=== PATIENT | female | born 1955 | race Caucasian/White ===

== ENCOUNTER 2016-11-19 11:00 | Inpatient (IN) | payer BC ==
[~2016-11-19] VITALS: Ht 177.8 cm; Wt 110.2 kg
--- NOTE | ~2016-11-19 | DS ---
PAT[facility]'S NAME: [facility] AGE: 61 Y [address] ROOM: [address] [place], [place] [address] LOCATION: [facility] ADMIT DATE: 11/27/2016 Discharge Summary DISCHARGE DATE: 11/29/2016 FAMILY PHYSICIAN: Doris Norman ATTENDING PHYSICIAN: Ayan Ochoa PRIMARY DIAGNOSIS: Degenerative joint disease of the left knee. SECONDARY DIAGNOSES: 1. Hypertension. 2. Anxiety disorder. 3. Recurrent urinary tract infections. PROCEDURE PERFORMED: Left total knee arthroplasty with computer navigation. HISTORY: The patient is a 61-year-old female, who presents with advanced left knee degenerative joint disease and associated severely compromised activities of daily living. The patient has decided to proceed with total knee arthroplasty after having been thoroughly counseled regarding the risks, benefits, limitations and alternatives. Please refer to the outpatient clinic notes and admission history and physical for this patient. HOSPITAL COURSE: The patient underwent a left total knee arthroplasty on 11/27/2016 without complications. Spinal anesthesia plus adductor canal block plus periarticular local anesthesia was utilized. The patient received 24 hours of perioperative prophylactic antibiotics and remained hemodynamically stable, neurovascularly intact throughout the entire hospital course. The postoperative prophylactic deep venous thrombosis prophylaxis consisted of Xarelto 10 mg, early mobilization and pneumatic compression devices. Daily physical therapy for gait training, transfer training range of motion and quadriceps isometric exercises were received. The patient progressed well in physical therapy. On the date of discharge, 11/29/2016, the incision at the knee was healing well and showed no signs of infection. DISPOSITION: Home. DISCHARGE ACTIVITY: The patient is to bear weight as tolerated with range of motion and quadriceps isometric exercises as instructed. The operative extremity is to be elevated at least 90% of the day. There is to be sterile 4x4 gauze dressings to the incision daily. Dr. Ochoa is to be notified immediately if there is any increased pain, fevers, chills erythema or drainage. DISCHARGE MEDICATIONS: 1. Xarelto 10 mg, take 1 tablet p.o. daily for DVT prevention. [facility]'S [facility]: [facility] AGE: 61 Y [address] [place]: [facility] [place] [place], [place] [address] LOCATION: [facility] ADMIT DATE: 11/27/2016 Discharge Summary DISCHARGE DATE: 11/29/2016 FAMILY PHYSICIAN: Doris Norman ATTENDING PHYSICIAN: Ayan Ochoa 2. Dilaudid 2 mg, take 1 to 2 tablets p.o. every 4 hours as needed for pain. 3. Celebrex 200 mg, take 1 tablet p.o. b.i.d. as needed. FOLLOWUP: Followup appointment is to be with Dr. Ochoa on Sunday December 04, 2016, for initial postoperative evaluation and x-rays at that time. MIS ARORA FOR AYAN OCHOA MD TLB/modl /[id number] d: 12/04/16 0306 t: 12/04/16 1110, DISCHARGE SUMMARY
--- NOTE | ~2016-11-19 | OR ---
PATIENT'S NAME: RAMON ARRIETA [facility] AGE: 61 Y [address] ROOM: [place] [address] LOCATION: [facility] ADMIT DATE: 11/27/2016 OR/Procedure Report DISCHARGE DATE: FAMILY PHYSICIAN: Doris Norman ATTENDING PHYSICIAN: AYAN LOUIS SURGEON: Ayan Louis MD ELECTRICAL ASSISTANT: Marty Rodríguez PA-C and Nilesh Sanchez CST/TOWER OPERATOR. DATE OF PROCEDURE: 11/27/2016 PRE-OP DIAGNOSIS: Degenerative joint disease left knee. POST-OP DIAGNOSIS: Degenerative joint disease left knee. OPERATION: Left total knee arthroplasty with computer navigation. ANESTHESIA: Spinal anesthesia, plus adductor canal block, plus periarticular local anesthesia (ropivacaine with epinephrine and Toradol). ESTIMATED BLOOD LOSS: Less than 10 mL. DRAIN: None. SPECIMEN: None. COMPLICATIONS: None. IMPLANT SYSTEM: Danika Triathlon. Size 5 left posterior stabilized femoral component. Size 4 [place] Modular tibial baseplate. A 16 mm posterior stabilized size 4 X3 tibial polyethylene insert. A 32 mm oval X3 patella component (triple pegged). INDICATIONS FOR SURGERY: Ramon Arrieta is a 61-year-old female who presents with advanced left knee degenerative joint disease and associated severely compromised activities of daily living. The patient has decided to proceed with knee replacement after having been thoroughly counseled regarding the associated risks, benefits, and limitations. We have specifically reviewed the risks and implications of infection, deep venous thrombosis, pulmonary embolism, mortality, neurovascular complications, blood transfusion (and associated potential for disease transmission or transfusion reaction), stiffness, instability, mechanical deterioration of the components (due to wear and or loosening), and the potential need for revision. We have also emphasized the importance of active involvement and compliance with post- operative physical therapy as a means of optimizing range of motion and PATIENT'S NAME: RAMON ARRIETA [facility] AGE: 61 Y [address] ROOM: [place] [address] LOCATION: [facility] ADMIT DATE: 11/27/2016 OR/Procedure Report DISCHARGE DATE: FAMILY PHYSICIAN: Doris Norman ATTENDING PHYSICIAN: AYAN LOUIS functional recovery. Informed consent has been granted. DESCRIPTION OF PROCEDURE: The patient was positioned supine after administration of anesthesia and prophylactic antibiotics. A well-padded pneumatic tourniquet was placed around the left proximal thigh, and the left lower extremity was prepped and draped with vigilant sterile technique. The patient's name as well as the intended operative side and procedure were confirmed with a verbal time-out involving myself, the circulating nurse, the scrub nurse, and the anesthesiologist. Examination under anesthesia demonstrated no active skin lesions or masses. There was a moderate effusion. There was no erythema. There was no abnormal warmth. Range of motion under anesthesia was from full extension to 130 degrees of flexion. There was no ligamentous insufficiency. The left lower extremity was elevated and exsanguinated with an Esmarch wrap, and the pneumatic tourniquet was inflated to 300 mmHg. The knee was approached through a longitudinal midline incision. A medial parapatellar arthrotomy was performed and the patella was everted. Examination of the joint space demonstrated a moderate amount of benign-appearing translucent synovial fluid. There were no loose bodies. There was no synovitis. There was a moderate-sized osteophyte at the intercondylar notch. Cruciate ligaments were intact. There was a large osteophyte at the inferior margin of the patella. There was a large osteophyte at the superior femoral trochlea. There were large osteophytes at the medial and lateral margins of these femoral trochlea as well as the medial femoral condyle and medial tibial plateau. There were intermixed grade 3 and grade 4 degenerative changes involving a 3 cm diameter region at the central aspect of the femoral trochlea. There was full-thickness loss of articular cartilage involving 90% of the medial femoral condyle and 60% of the medial tibial plateau. There were large osteophytes at the anterior and posterior margins of the medial tibial plateau. There was a 6 mm diameter region of grade 3 chondromalacia at the central aspect of the lateral femoral condyle. There was full-thickness fissuring and mild grade 3 chondromalacia at the medial aspect of the lateral tibial plateau. Remnants of the menisci and cruciate ligaments were excised. The [employer] navigation femoral tracker was pinned in place at the distal aspect of the femoral trochlea. Absence of motion between the femur and the tracking device was confirmed manually and visually. Femoral osseous landmarks were obtained in order to calibrate the computer navigation system. Landmarks included the center of rotation of the ipsilateral hip, the center-point of the distal femur, the femoral AP axis, 57 points on the medial femoral condyle articular surface, and 57 points on the lateral femoral condyle articular PATIENT'S NAME: RAMON ARRIETA [facility] AGE: 61 Y [address] ROOM: [address] [address] LOCATION: [facility] ADMIT DATE: 11/27/2016 OR/Procedure Report DISCHARGE DATE: FAMILY PHYSICIAN: Doris Norman ATTENDING PHYSICIAN: AYAN LOUIS. The [employer] computer navigation system was subsequently utilized to position the distal femoral resection block such that the distal femoral resection was performed perfectly perpendicular to the femoral mechanical axis. The distal femoral resection was performed with a Sisasa oscillating saw. The [employer] computer navigation tibial tracker was pinned in place at the anterior aspect of the tibial plateau. Absence of motion between the tibia and the tracking device was confirmed manually and visually. Tibial osseous landmarks were obtained in order to calibrate the computer navigation system. Landmarks included the center-point of the tibial plateau, the AP tibial axis, 57 points on the medial tibial plateau articular surface, 57 points on the lateral tibial plateau articular surface, the medial malleolus, and the lateral malleolus. The [employer] computer navigation system was subsequently utilized to position the proximal tibial resection block such that the proximal tibial resection was performed perfectly perpendicular to the tibial mechanical axis. The proximal tibial resection was performed with a [employer] Precision oscillating saw. Perpendicularity of the tibial resection with respect to the tibial shaft axis was reconfirmed by inserting a spacer- block attached to an extramedullary guide dimitrios. External rotation of the anterior and posterior femoral resections was set parallel to the epicondylar axis and carefully adjusted in order to create a rectangular flexion gap. The box resection was performed with a reciprocating saw. Anterior and posterior chamfer resections were performed with the oscillating saw. Posterior condyle osteophytes were excised with an osteotome. All other osteophytes were excised with a rongeur. Resection of all remnants of the menisci was reconfirmed. Flexion and extension gaps were confirmed to be symmetric and well balanced with a spacer-block technique. The patella resection was performed with an oscillating saw such that the composite thickness of the reconstructed patella was equivalent to the thickness of the [place] patella. Patella tracking was confirmed to be optimal. Patellar tracking was optimal, and there was no need for a lateral retinacular release. All trial components were removed and all prepared osseous surfaces were thoroughly irrigated with pulsatile saline lavage and dried prior to cementing all three components in a single stage using [place] Simplex cement containing pre-mixed tobramycin. All extruded excess cement was removed. The entire joint space was thoroughly inspected and thoroughly irrigated with bacteriostatic pulsatile saline lavage to assure that there was no residual debris of any sort. Final range of motion was from full extension (with no passive hyperextension) PATIENT'S NAME: RAMON ARRIETA [facility] AGE: 61 Y [address] ROOM: [address] [address] LOCATION: [facility] ADMIT DATE: 11/27/2016 OR/Procedure Report DISCHARGE DATE: FAMILY PHYSICIAN: Doris Norman ATTENDING PHYSICIAN: AYAN LOUIS to 130 degrees of flexion. Patella tracking was reconfirmed to be optimal. There was excellent anteroposterior stability at 90 degrees of flexion. There was 0 mm of medial lift-off to valgus stress in full extension. There was 1 mm of lateral lift-off to varus stress in full extension. The arthrotomy was closed with multiple simple and [id number] interrupted #1 Vicryl. Subcutaneous tissues were thoroughly re-irrigated with bacteriostatic pulsatile saline lavage. Subcutaneous tissues were re- approximated with simple buried interrupted #0 Vicryl sutures. The skin was closed with simple buried interrupted 2-0 Vicryl sutures followed by surgical clara. The dressing consisted of Xeroform gauze, 4x4 gauze, ABD pads and two 6-inch Yonatan Wraps. There were no intra-operative complications. It should be noted that the physician's cardiology physician assistant played an active, integral role throughout this entire operation. By providing expert retraction, they greatly facilitated and expedited safe and effective exposure of the distal femur, proximal tibia and patella for preparation and implantation of the components. They were also actively involved in the patient's positioning, prepping and draping, as well as wound closure. MD COLTON HOOKER/modl /[id number] d: 11/28/16929 t: 11/29/162035, OPERATIVE SUMMARY
--- NOTE | ~2016-11-19 | CON ---
PATIENT'S NAME: [facility] AGE: 61 Y [address] ROOM: [place] [address] LOCATION: [facility] ADMIT DATE: 11/27/2016 Consultation DISCHARGE DATE: FAMILY PHYSICIAN: Doris Norman ATTENDING PHYSICIAN: AYAN LOUIS DATE OF CONSULTATION: 11/27/2016 REFERRING PHYSICIAN: SANDEE BURNETT MD CONSULTING PHYSICIAN: Dr. Burnett. REASON FOR CONSULTATION: Medical management, postop. HISTORY OF PRESENT ILLNESS: The patient is a 61-year-old female with a past medical history further detailed below. She is postop day 0 for left total knee arthroplasty. At this point, the patient is resting comfortably in Medical/Surgical Unit and denies any complaints. REVIEW OF SYSTEMS: All systems have been reviewed and are negative aside from pertinent positives mentioned above. PAST MEDICAL HISTORY: As reported by the patient is that of: 1. Essential hypertension, on medications. 2. Depression/anxiety on Zoloft. 3. Questionable PUD versus GERD on acid blockers. PAST SURGICAL HISTORY: Significant for prior right hip arthroplasty. SOCIAL HISTORY: The patient denies any history of toxic habits. FAMILY HISTORY: Reviewed and is noncontributory due to known underlying etiology for her presentation to the hospital. CURRENT MEDICATIONS: 1. Amlodipine. 2. Calcium carbonate. 3. Vitamin D. PATIENT'S NAME: [facility] AGE: 61 Y [address] ROOM: [place] [address] LOCATION: [facility] ADMIT DATE: 11/27/2016 Consultation DISCHARGE DATE: FAMILY PHYSICIAN: Doris Norman ATTENDING PHYSICIAN: AYAN LOUIS 4. Flonase. 5. Hydrochlorothiazide. 6. Ibuprofen. 7. Lisinopril. 8. Multivitamin. 9. Naproxen. 10. Macrobid. 11. [place]-3 fatty acids. 12. Omeprazole. 13. Zoloft. PHYSICAL EXAMINATION: VITAL SIGNS: Temperature 98.2, pulse 80, respirations 16, blood pressure 143/66, and saturating 100% on 2 L nasal cannula. GENERAL APPEARANCE: Well-developed, well-nourished, middle-aged female, in no acute distress. NEUROLOGICAL: Exam is nonfocal. EYES: Exam shows pupils are equal and reactive to light. LYMPHATICS: Exam shows no cervical lymphadenopathy. ENDOCRINE: Exam shows no thyromegaly. LUNGS: Clear to auscultation. HEART: Rate is regular. GI: Abdomen is soft, nontender, nondistended. : No costovertebral angle tenderness. VASCULAR: A 2+ pedal pulses. MUSCULOSKELETAL: Exam is deferred. SKIN: Warm and dry. PSYCHIATRIC: Appropriate mood, cognition, and affect. LABORATORY DATA: No lab studies are available at this point. IMPRESSION/RECOMMENDATIONS: A 61-year-old female postop day 0 for left total knee arthroplasty. Problems to be addressed are: 1. Essential hypertension. Her antihypertensive regimen has been continued. 2. Anxiety. Her Zoloft has been continued. 3. Questionable peptic ulcer disease versus gastroesophageal reflux disease. Proton pump inhibitor has been continued. 4. Pain regimen and gastrointestinal regimen have been ordered by the Primary Service. 5. We will help manage the patient's medical problems till discharge. Thank you for allowing me to participate in the care of this patient. Time dedicated to this patient encounter is 16 minutes. PATIENT'S NAME: [facility]ON [facility] AGE: 61 Y [address] ROOM: [address] [address] LOCATION: [facility] ADMIT DATE: 11/27/2016 Consultation DISCHARGE DATE: FAMILY PHYSICIAN: Doris Norman ATTENDING PHYSICIAN: AYAN LOUIS MD TEVIN ONOFRE/chinedu /[id number] d: 11/28/16 0158 t: 12/11/16 0003, CONSULTATION REPORT
[~2016-11-19 11:00] MED LIST: ADVIL200 MG PO; ALEVE220 MG PO; CALCIUM 600 +1 EAC6 PO; CELEBREX200 MG PO; COLACE100 MG PO; DILAUDID 2MG(HYD2 MG PO; FISH OIL 1,2001 EAC1 PO; FLONASE 50 MCG/16 GM NOSE; HYDROCHLOROTH12.5 M1 PO; MACROBID100 MG PO; MIRALAX17 GM PO; NORVASC10 MG PO; PRILOSEC20 MG PO; THERA-VITE W/ B1 TAB PO; TYLENOL EXTRA500 MG PO; VALIUM5 MG PO; XARELTO10 MG PO; ZESTRIL40 MG PO; ZOLOFT50 MG PO
--- NOTE | 2016-11-28 04:32 | NUR ---
Pt arrived to floor at 1843. Pt A&Ox3, VSS stable, titrated to RA. Dressing CDI to left knee, ice in place. Pt reports still feeling "heavy" sensation to left leg but CSM otherwise intact. Up with 1A GB and walker to dangle and stand at bedside, up to use BSC x2. Pain well controlled with scheduled tylenol and PRN diluadid; pain rated 1-3 throughout shift. Voiding and taking PO well.
--- NOTE | 2016-11-28 09:20 | NUR ---
Introduced self/role to patient. Lives in [place] with her Danyel. He has taken 2 weeks of vacation to be home to help. 2 children are school teachers and will also be around. She has all her DME from her previous hip surgery. Denied any barriers to discharge or at home. Added my name to her marker board will continue to follow. Plan on home tomorrow.
--- NOTE | 2016-11-28 17:26 | NUR ---
Pt Alert and oriented x3. Pt voiding well. No BM on this shift. Last Dilauded @ 8314. VSS. Pain well controlled. SBA. Dressing c/d/i. Ice applied to left knee. Pt anxious about pain. CSM WNL.
--- NOTE | 2016-11-28 18:05 | NUR ---
I reviewed and approve of charting by Esteban Rowland,
--- NOTE | 2016-11-29 04:56 | NUR ---
Significant Event: Alert/oriented x3. Plans to go home today. Voids well per bathroom. VSS, little hypotensive at 2nd vitals, upper 80s, low 90s systolic. CSM WNL. Dressing C/D/I. EZ wrap applied. Pain controlled well with scheduled Tylenol ES, last at 0500. Follow up:
[2016-11-29] MEDS ORDERED: TYLENOL EXTRA500 MG PO (10:03)
[2016-11-29] MEDS ORDERED: COLACE100 MG PO (10:04)
[2016-11-29] MEDS ORDERED: NEURONTIN300 MG PO (10:05)
[2016-11-29] MEDS ORDERED: MIRALAX17 GM PO (10:06)
[2016-11-29] MEDS ORDERED: XARELTO10 MG PO (10:07)
[2016-11-29] MEDS ORDERED: DILAUDID 2MG(HYD2 MG PO (10:09)
[2016-11-29] MEDS ORDERED: CELEBREX200 MG PO (10:10)
== END 2016-11-29 15:25 | disposition disaster alternative care site (69) | DRG 470 ==
LOC: G3N 11-27 13:08
PROVIDERS: ADMIT Orthopaedic Surgery
PROC: 0SRD0J9 Replacement of Left Knee Joint with Synthetic Substitute, Cemented, Open Approach (ICD-10-PCS; principal; 2016-11-28)
DX: M17.12 Unilateral primary osteoarthritis, left knee (principal); K27.9 Peptic ulcer, site unspecified, unspecified as acute or chronic, without hemorrhage or perforation; F32.9 Major depressive disorder, single episode, unspecified; I10 Essential (primary) hypertension; F41.9 Anxiety disorder, unspecified; Z88.3 Allergy status to other anti-infective agents; Z88.0 Allergy status to penicillin; Z88.2 Allergy status to sulfonamides; Z87.440 Personal history of urinary (tract) infections
CPT/HCPCS: J1100; J1885; J2001; J2250; J2795; J7120